=== PATIENT | female | born 1980 | race Asian ===

== ENCOUNTER 2017-10-16 00:01 | Inpatient (IN) | payer SELFPAY ==
[~2017-10-16] VITALS: Ht 156 cm; Wt 65.8 kg
[2017-10-16] MEDS ORDERED: TERBUTALINE 1 MG/ML VIAL SUBQ SCH (00:25)
[2017-10-16] MEDS ORDERED: AMPICILLIN 2,000 MG in NACL 0.9% MINI-BAG PLUS 100 ML IV SCH (00:25)
[2017-10-16] MEDS ORDERED: BETAMETH ACET/BETAMETH NA PH 30 MG/5 ML VIAL IM SCH ×2 (00:30→12:35)
[2017-10-16] MEDS: LACTATED RINGERS 1,000 ML IV SCH ×2 (00:39→10:44)
[2017-10-16] MEDS ORDERED: BETAMETH ACET/BETAMETH NA PH 30 MG/5 ML VIAL IM ONE ×3 (00:51→12:06)
[2017-10-16] MEDS ORDERED: TERBUTALINE 1 MG/ML VIAL SUBQ ONE (00:51)
[2017-10-16] MEDS ORDERED: AMPICILLIN 2,000 MG VIAL ONE (00:51)
[2017-10-16 01:40] LABS: BASOPHILS # (AUTO) 0.3 K/uL (0.00-0.22); BASOPHILS % (AUTO) 3.3 % (0.0-2.0); EOSINOPHILS # (AUTO) 0.1 K/uL (0-0.4); EOSINOPHILS % (AUTO) 0.6 % (0.0-4.0); HEMATOCRIT 36.3 % (36-48); HEMOGLOBIN 12.1 g/dL (12.0-16.0); LYMPHOCYTES % (AUTO) 20.6 % (20.5-51.1); MEAN CORPUSCULAR HEMOGLOBIN 30 pg (27-31); MEAN CORPUSCULAR HGB CONC 33 g/dL (33-37); MEAN CORPUSCULAR VOLUME 90 fL (80-94); MONOCYTES # (AUTO) 0.3 K/uL (0.8-1.0); MONOCYTES % (AUTO) 3.2 % (1.7-9.3); NEUTROPHILS # (AUTO) 7.1 K/uL (1.8-7.7); NEUTROPHILS % (AUTO) 72.3 % (42.2-75.2); PLATELET COUNT (AUTO) 224 K/uL (140-450); RED BLOOD CELL COUNT(AUTO) 4.03 MIL/uL (4.20-5.40); RED CELL DISTRIBUTION WIDTH 14.6 % (11.6-13.7); WHITE BLOOD COUNT (AUTO) 9.8 K/uL (4.8-10.8)
[2017-10-16] MEDS ORDERED: INFLUENZA VIRUS VACCINE QUAD 0.5 ML SYR IMVAC SCH (01:48)
[2017-10-16 01:50] VITALS: BP 107/74
[2017-10-16 02:24] LABS: ALBUMIN 2.7 g/dL (3.4-5.0); ANION GAP 16.9 (8-16); CARBON DIOXIDE 20.1 mmol/L (21-32); CREATININE 0.5 mg/dL (0.6-1.3); TOTAL BILIRUBIN 0.6 mg/dL (0.0-1.0)
[2017-10-16] MEDS ORDERED: AMPICILLIN 1,000 MG VIAL ONE ×5 (03:55→23:30)
[2017-10-16] MEDS: AMPICILLIN 1,000 MG in NACL 0.9% MINI-BAG PLUS 50 ML IV SCH ×5 (04:02→23:27)
[2017-10-16 06:54] LABS: BILIRUBIN,URINE NEGATIVE (NEGATIVE); BLOOD, URINE NEGATIVE (NEGATIVE); COLOR,URINE YELLOW (YELLOW); LEUKOCYTE ESTERASE ,URINE NEGATIVE (NEGATIVE); PH,URINE 5.5 (5.0-9.0); UGLUCOSE NEGATIVE (NEGATIVE)
[2017-10-16 07:26] LABS: APPEARANCE,URINE SLIGHTLY HAZY (CLEAR); RBC,URINE 0-5 (RARE) /HPF (0-5); WBC,URINE 0-5 (RARE) /HPF (0-5)
[2017-10-16 07:27] LABS: NITRITE, URINE POSITIVE (NEGATIVE)
--- NOTE | 2017-10-16 08:47 | NUR ---
PATIENT HAS BEEN SCREENED AND CATEGORIZED LOW NUTRITION RISK. PT WILL BE SEEN WITHIN 7 DAYS OF ADMISSION. 10/22/[address]
[2017-10-16] MEDS: TERBUTALINE 2.5 MG TAB PO SCH ×3 (09:49→22:08)
[2017-10-16] MEDS ORDERED: TERBUTALINE 2.5 MG TAB ONE ×3 (09:58→22:14)
[2017-10-16] MEDS: ERYTHROMYCIN 250 MG in NACL 0.9% 100 ML IV SCH ×2 (16:05→22:09)
[2017-10-16] MEDS ORDERED: ERYTHROMYCIN 250 MG TABEC PO SCH (17:00)
[2017-10-17] MEDS ORDERED: AMPICILLIN 1,000 MG VIAL ONE ×4 (02:49→18:08)
[2017-10-17] MEDS: ERYTHROMYCIN 250 MG in NACL 0.9% 100 ML IV SCH ×3 (04:07→16:55)
[2017-10-17] MEDS: TERBUTALINE 2.5 MG TAB PO SCH ×3 (04:17→16:06)
[2017-10-17] MEDS ORDERED: TERBUTALINE 2.5 MG TAB ONE ×3 (04:26→16:14)
[2017-10-17] MEDS: AMPICILLIN 1,000 MG in NACL 0.9% MINI-BAG PLUS 50 ML IV SCH ×4 (05:28→18:06)
[2017-10-17] MEDS: OXYTOCIN 20 UNITS in LACTATED RINGERS 1,000 ML IV SCH (08:10)
[2017-10-17] MEDS: LACTATED RINGERS 1,000 ML IV SCH (09:13)
[2017-10-17 14:22] LABS: BASOPHILS # (AUTO) 0.1 K/uL (0.00-0.22); BASOPHILS % (AUTO) 0.7 % (0.0-2.0); EOSINOPHILS # (AUTO) 0.1 K/uL (0-0.4); EOSINOPHILS % (AUTO) 0.7 % (0.0-4.0); HEMATOCRIT 31.6 % (36-48); HEMOGLOBIN 10.5 g/dL (12.0-16.0); LYMPHOCYTES # (AUTO) 0.6 K/uL (2.5-16.5); LYMPHOCYTES % (AUTO) 4.2 % (20.5-51.1); MEAN CORPUSCULAR HEMOGLOBIN 29 pg (27-31); MEAN CORPUSCULAR HGB CONC 33 g/dL (33-37); MEAN CORPUSCULAR VOLUME 88 fL (80-94); MONOCYTES # (AUTO) 0.5 K/uL (0.8-1.0); MONOCYTES % (AUTO) 3.1 % (1.7-9.3); NEUTROPHILS # (AUTO) 13.2 K/uL (1.8-7.7); NEUTROPHILS % (AUTO) 91.3 % (42.2-75.2); PLATELET COUNT (AUTO) 235 K/uL (140-450); RED BLOOD CELL COUNT(AUTO) 3.58 MIL/uL (4.20-5.40); RED CELL DISTRIBUTION WIDTH 15.3 % (11.6-13.7); WHITE BLOOD COUNT (AUTO) 14.5 K/uL (4.8-10.8)
[2017-10-17 21:01] LABS: BASOPHILS # (AUTO) 0.1 K/uL (0.00-0.22); BASOPHILS % (AUTO) 0.5 % (0.0-2.0); EOSINOPHILS % (AUTO) 0.2 % (0.0-4.0); HEMATOCRIT 32.4 % (36-48); HEMOGLOBIN 10.6 g/dL (12.0-16.0); LYMPHOCYTES # (AUTO) 0.6 K/uL (2.5-16.5); LYMPHOCYTES % (AUTO) 4.2 % (20.5-51.1); MEAN CORPUSCULAR HEMOGLOBIN 29 pg (27-31); MEAN CORPUSCULAR HGB CONC 33 g/dL (33-37); MEAN CORPUSCULAR VOLUME 90 fL (80-94); MONOCYTES # (AUTO) 0.6 K/uL (0.8-1.0); MONOCYTES % (AUTO) 4.2 % (1.7-9.3); NEUTROPHILS # (AUTO) 12.8 K/uL (1.8-7.7); NEUTROPHILS % (AUTO) 90.9 % (42.2-75.2); PLATELET COUNT (AUTO) 256 K/uL (140-450); RED BLOOD CELL COUNT(AUTO) 3.62 MIL/uL (4.20-5.40); RED CELL DISTRIBUTION WIDTH 14.8 % (11.6-13.7); WHITE BLOOD COUNT (AUTO) 14.1 K/uL (4.8-10.8)
[2017-10-17] MEDS ORDERED: BUPIVACAINE-MPF 0.75% 10 ML VIAL INJ ONE (21:56)
[2017-10-17] MEDS ORDERED: OXYTOCIN 10 UNITS/ML VIAL ONE ×2 (21:56→21:58)
[2017-10-17] MEDS ORDERED: LABETALOL 100 MG/20 ML VIAL ONE (21:56)
[2017-10-17] MEDS ORDERED: METHYLERGONOVINE 0.2 MG/ML AMP ONE (21:58)
[2017-10-17] MEDS ORDERED: TRIAMCINOLONE 10 MG/ML 5ML VIAL ONE (21:58)
[2017-10-17] MEDS ORDERED: CITRIC ACID/SODIUM CITRATE 30 ML UDC PO SCH (22:00)
[2017-10-17] MEDS ORDERED: ceFAZolin 1,000 MG VIAL ONE (22:07)
[2017-10-17] MEDS ORDERED: MORPHINE PRES FREE 10 MG/10 ML AMP IV ONE (22:12)
[2017-10-17] MEDS ORDERED: fentaNYL 0.05 MG/ML VIAL ONE (22:12)
[2017-10-17] MEDS ORDERED: ceFAZolin 1,000 MG VIAL IVP ONE (22:15)
[2017-10-17] MEDS ORDERED: KETAMINE 500 MG/5 ML VIAL ONE (22:29)
[2017-10-17] MEDS ORDERED: ONDANSETRON 4 MG/2 ML VIAL ONE (22:37)
[2017-10-17] MEDS ORDERED: diphenhydrAMINE 50 MG/ML VIAL ONE (22:37)
[2017-10-17] MEDS ORDERED: SIMETHICONE 80 MG TAB.CHEW PO PRN (22:45)
[2017-10-17] MEDS ORDERED: HYDROcodone/APAP 5/325 MG 1 TAB TAB PO PRN (22:45)
[2017-10-17] MEDS ORDERED: TRIMETHOBENZAMIDE 200 MG/2 ML SYR IM PRN (22:45)
[2017-10-17] MEDS ORDERED: METHYLERGONOVINE 0.2 MG/ML AMP IM PRN (22:45)
[2017-10-17] MEDS ORDERED: TEMAZEPAM 15 MG CAP PO PRN (22:45)
[2017-10-17] MEDS ORDERED: IBUPROFEN 800 MG TAB PO PRN (22:45)
[2017-10-17] MEDS ORDERED: MEASLES, MUMPS, AND RUBELLA 1 VIAL SQVAC PRN (22:45)
[2017-10-17] MEDS ORDERED: KETOROLAC 60 MG/2 ML VIAL IM PRN (23:05)
[2017-10-17] MEDS ORDERED: NALBUPHINE 10 MG/ML AMP IVP PRN (23:05)
[2017-10-17] MEDS ORDERED: NALOXONE 0.4 MG/ML VIAL IVP PRN ×3 (23:05)
[2017-10-17] MEDS ORDERED: diphenhydrAMINE 50 MG/ML VIAL IVP PRN (23:05)
[2017-10-17] MEDS ORDERED: ONDANSETRON 4 MG/2 ML VIAL IVP PRN ×2 (23:05)
[2017-10-17] MEDS: OXYTOCIN 20 UNITS/LR PREMIX 1,000 ML IV ONE ×2 (23:26→23:38)
[2017-10-17] MEDS ORDERED: KETOROLAC 30 MG/ML VIAL IVP PRN (23:30)
[2017-10-18 07:18] LABS: HEMATOCRIT 30.1 % (36-48); HEMOGLOBIN 10.1 g/dL (12.0-16.0); MEAN CORPUSCULAR HEMOGLOBIN 30 pg (27-31); MEAN CORPUSCULAR HGB CONC 34 g/dL (33-37); MEAN CORPUSCULAR VOLUME 89 fL (80-94); PLATELET COUNT (AUTO) 252 K/uL (140-450); RED BLOOD CELL COUNT(AUTO) 3.38 MIL/uL (4.20-5.40); RED CELL DISTRIBUTION WIDTH 14.8 % (11.6-13.7); WHITE BLOOD COUNT (AUTO) 19.2 K/uL (4.8-10.8)
[2017-10-18 08:01] LABS: BASOPHILS % (MANUAL) 0 % (0-2); EOSINOPHILS % (MANUAL) 0 % (0-4); LYMPHOCYTES % (MANUAL) 3 % (20-46); MONOCYTES % (MANUAL) 2 % (5-12)
[2017-10-18] MEDS ORDERED: OXYTOCIN 10 UNITS/ML VIAL ONE (08:08)
[2017-10-18] MEDS ORDERED: AMPICILLIN 2,000 MG VIAL ONE ×3 (11:27→20:13)
[2017-10-18] MEDS: AMPICILLIN 2,000 MG in NACL 0.9% 100 ML IV SCH ×3 (11:27→21:04)
[2017-10-18] MEDS: OXYTOCIN 20 UNITS in LACTATED RINGERS 1,000 ML IV SCH (16:30)
[2017-10-18] MEDS ORDERED: INFLUENZA VIRUS VACCINE QUAD 0.5 ML SYR IMVAC SCH (20:40)
[2017-10-18] MEDS ORDERED: DOCUSATE SOD/SENNA 50/8.6 MG 1 TAB PO SCH (21:00)
[2017-10-19] MEDS: AMPICILLIN 2,000 MG in NACL 0.9% 100 ML IV SCH (01:07)
[2017-10-19] MEDS ORDERED: AMPICILLIN 2,000 MG VIAL ONE (01:09)
[2017-10-19] MEDS: oxyCODONE/APAP 5/325 MG 1 TAB TAB PO PRN ×2 (03:04→10:16)
[2017-10-19] MEDS ORDERED: BISACODYL 10 MG SUPP RC PRN (12:30)
[2017-10-19] MEDS: SODIUM PHOSPHATE 118 ML ENEM RC PRN ×2 (19:41→19:43)
== END 2017-10-19 22:44 | disposition home or self-care (01) | DRG 766 ==
LOC: MLD 00:01 → MFCC 10-18 06:55
PROVIDERS: ADMIT Obstetrics & Gynecology; ATTEND Obstetrics & Gynecology
PROC: 10D00Z1 Extraction of Products of Conception, Low, Open Approach (ICD-10-PCS; principal; 2017-10-17 22:00)
PROC: 3E0234Z Introduction of Serum, Toxoid and Vaccine into Muscle, Percutaneous Approach (ICD-10-PCS; 2017-10-18)
DX: O34.211 Maternal care for low transverse scar from previous cesarean delivery (principal); O42.913 Preterm premature rupture of membranes, unspecified as to length of time between rupture and onset of labor, third trimester; Z37.0 Single live birth; Z3A.35 35 weeks gestation of pregnancy; Z23 Encounter for immunization
CPT/HCPCS: 36415; 80053; 81001; 85025; 86140; 86592; 86886; 86900; 86901; 87086; 90658; 90715; J0290; J0690; J0702; J1200; J1364; J2210; J2270; J2405; J2590; J3010; J3105; J3301; J3490; J7060; J7120